=== PATIENT | male | born 1985 | race Caucasian/White ===

== ENCOUNTER → 2021-12-12 | Outpatient (CLI) | payer MEDICARE, OTHER | LOC: EXRD 11:12 | DX: R06.02 Shortness of breath (principal) | CPT/HCPCS: 94010 ==

== ENCOUNTER → 2021-12-26 | Outpatient (CLI) | payer MEDICARE, OTHER | LOC: KOH-I 13:30 | DX: R91.8 Other nonspecific abnormal finding of lung field (principal) | CPT/HCPCS: 71250 ==

== ENCOUNTER → 2022-03-07 | Outpatient (CLI) | payer MEDICARE, OTHER | LOC: KOH-I 14:00 | DX: R91.8 Other nonspecific abnormal finding of lung field (principal) | CPT/HCPCS: 71250 ==